=== PATIENT | male | born 1945 ===

== ENCOUNTER → 2021-08-04 | Outpatient (REF) | payer MEDICARE, BC, OTHER | LOC: M WUC 20:21 | PROVIDERS: ATTEND Physician Assistant | DX: R30.0 Dysuria (principal) ==

== ENCOUNTER → 2021-08-21 | Outpatient (REF) | payer MEDICARE, BC, OTHER | LOC: M WUC 11:26 | PROVIDERS: ATTEND Physician Assistant | DX: R30.0 Dysuria (principal) ==